=== PATIENT | male | born 1970 | race Caucasian/White ===

== ENCOUNTER 2019-12-24 13:58 | Emergency (ER) | payer BC ==
[2019-12-24] MEDS ORDERED: Sodium Chloride 0.9% 10 ML Syringe FLUSH PRN (14:11)
--- NOTE | 2019-12-24 14:34 | EDM.PDOC ---
ED HPI GENERAL MEDICAL PROBLEM - General Chief Complaint: Chest Pain Stated Complaint: CHEST PAIN Time Seen by Provider: 12/24/19 14:11 Source of Information: Reports: Patient, RN Notes Reviewed History Limitations: Reports: No Limitations - History of Present Illness INITIAL COMMENTS - FREE TEXT/NARRATIVE: Patient is a 49-year-old male who presents to the ED for evaluation of a sudden onset right chest pain. Patient notes that this came on suddenly 2 hours ago, he notes the pain to be sharp stabbing pain in nature, and it seems to worsen when he moves his arm away from his body. He also states it worsens when he takes a deep breath. He notes it is a pretty dull ache at rest, but anytime he takes a deep breath or moves his arm, he states it would bring him to his knees if he was standing up. Patient denies any sort of trauma or lifting anything heavy in the last few days, he further denies any other sick-like symptoms that he has been having. He states there is some associated chest heaviness with this as well. He states that his father at age 47 from a heart attack, and his paternal uncle also had a heart attack in his 70s. Patient denies any other past medical history other than a little bit of elevated cholesterol, and some slight hypertension that he is unmedicated for. Patient denies any diaphoresis, shortness of breath, cough, nausea/vomiting/diarrhea. He did not take anything for the pain at home. Patient states that he really only takes a probiotic for home medications, and denies any other medication use. Location: Reports: Chest (right anterior aspect), Upper Extremity, Right Right Chest Pain Score (Numeric/FACES): 8 - Related Data Allergies Allergy/AdvReac Type Severity Reaction Status Date / Time No Known Allergies Allergy Verified 12/24/19 14:10 Home Meds: Home Meds . [No Known Home Meds] 12/24/19 [History] Past Medical History Cardiovascular History: Reports: High Cholesterol, Hypertension (unmedicated) - Past Surgical History GI Surgical History: Reports: Other (See Below) Other GI Surgeries/Procedures: perianal abcess Social & Family History - Family History Cardiac: Reports: [place] (father at age 47; paternal uncle in 70s) - Tobacco Use Smoking Status *Q: Never Smoker - Caffeine Use Caffeine Use: Reports: Coffee, Soda - Recreational Drug Use Recreational Drug Use: No ED ROS GENERAL - Review of Systems Review Of Systems: Comprehensive ROS is negative, except as noted in HPI. ED EXAM, GENERAL - Physical Exam Exam: See Below Exam Limited By: No Limitations General Appearance: Alert, WD/WN, No Apparent Distress, Anxious Eye Exam: Bilateral Eye: EOMI, Normal Inspection, PERRL Respiratory/Chest: No Respiratory Distress, Lungs Clear, Normal Breath Sounds, No Accessory Muscle Use, Other (Patient's chest is tender on the anterior aspect right side, near the fourth/fifth rib distribution. This does reproduce the pain that he was feeling.) Cardiovascular: Normal Peripheral Pulses, Regular Rate, Rhythm, No Edema, No Murmur Peripheral Pulses: 3+: Radial (L), Radial (R) GI/Abdominal: Normal Bowel Sounds, Soft, Non-Tender, No Distention, No Mass Extremities: Normal Inspection, Normal Capillary Refill Neurological: Alert, Oriented, Normal Cognition, No Motor/Sensory Deficits Psychiatric: Normal Affect, Normal Mood Skin Exam: Warm, Dry, Intact, Normal Color, No Rash EKG INTERPRETATION EKG Date: 12/24/19 Time: 14:03 Rhythm: NSR (sinus bhupinder) Rate (Beats/Min): 55 [place]: Normal P-Wave: Present QRS: Normal ST-T: Normal QT: Normal Comparison: NA - No Prior EKG EKG Interpretation Comments: No obvious ischemia or acute ST changes noted, reviewed by myself and Dr. Connell. Course - Vital Signs Last Recorded V/S: Last Vital Signs Temp 97.0 F 12/24/19 14:08 Pulse 60 12/24/19 14:08 Resp 18 12/24/19 14:08 BP 165/99 H 12/24/19 14:08 Pulse Ox 99 12/24/19 14:08 - Orders/Labs/Meds Orders: Active Orders 24 hr Category Date Time Status EKG Documentation Completion [RC] STAT Care 12/24/19 14:11 Ordered Peripheral IV Care [RC] . DIRECTED Care 12/24/19 14:11 Ordered Sodium Chloride 0.9% [Saline Flush] Med 12/24/19 14:11 Ordered 10 ml FLUSH ASDIRECTED PRN Peripheral IV Insertion Adult [OM.PC] Stat Oth 12/24/19 14:11 Ordered Medication Orders Sodium Chloride (Saline Flush) 10 ml FLUSH ASDIRECTED PRN PRN Reason: Keep Vein Open Last Admin: 12/24/19 14:58 Dose: 10 ml Labs: Laboratory Tests 12/24/19 12/24/19 12/24/19 Range/Units 14:10 14:10 14:10 WBC 4.47 (4.23-9.07) K/mm3 RBC 5.16 (4.63-6.08) M/mm3 Hgb 15.4 (13.7-17.5) gm/dl Hct 46.1 (40.1-51.0) % MCV 89.3 (79.0-92.2) fl MCH 29.8 (25.7-32.2) pg MCHC 33.4 (32.2-35.5) g/dl RDW Std Deviation 42.9 (35.1-43.9) fL Plt Count 224 (163-337) K/mm3 MPV 10.2 (9.4-12.3) fl Neutrophils % (Manual) 58 (40-60) % Band Neutrophils % 1 (0-10) % Lymphocytes % (Manual) 30 (20-40) % Atypical Lymphs % 0 % Monocytes % (Manual) 8 (2-10) % Eosinophils % (Manual) 1 (0.8-7.0) % Basophils % (Manual) 2 H (0.2-1.2) Platelet Estimate Adequate RBC Morph Comment Normal PT 10.9 (9.7-12.0) SECONDS INR 1.00 APTT 28 (22-31) SECONDS Sodium 140 (136-145) mEq/L Potassium 4.5 (3.5-5.1) mEq/L Chloride 103 (98-107) mEq/L Carbon Dioxide 29 (21-32) mEq/L Anion Gap 12.5 (5-15) BUN 14 (7-18) mg/dL Creatinine 1.2 (0.7-1.3) mg/dL Est Cr Clr Drug Dosing 82.63 mL/min Estimated GFR (MDRD) > 60 (>60) mL/min BUN/Creatinine Ratio 11.7 L (14-18) Glucose 108 H (74-106) mg/dL Calcium 9.8 (8.5-10.1) mg/dL Magnesium 2.1 (1.8-2.4) mg/dl Total Bilirubin 0.7 (0.2-1.0) mg/dL AST 26 (15-37) U/L ALT 43 (16-63) U/L Alkaline Phosphatase 64 (46-116) U/L Troponin I < 0.017 (0.00-0.056) ng/mL NT-Pro-B Natriuret Pep (0-125) pg/mL Total Protein 7.7 (6.4-8.2) g/dl Albumin 4.5 (3.4-5.0) g/dl Globulin 3.2 gm/dL Albumin/Globulin Ratio 1.4 (1-2) 12/24/19 Range/Units 14:10 WBC (4.23-9.07) K/mm3 RBC (4.63-6.08) M/mm3 Hgb (13.7-17.5) gm/dl Hct (40.1-51.0) % MCV (79.0-92.2) fl MCH (25.7-32.2) pg MCHC (32.2-35.5) g/dl RDW Std Deviation (35.1-43.9) fL Plt Count (163-337) K/mm3 MPV (9.4-12.3) fl Neutrophils % (Manual) (40-60) % Band Neutrophils % (0-10) % Lymphocytes % (Manual) (20-40) % Atypical Lymphs % % Monocytes % (Manual) (2-10) % Eosinophils % (Manual) (0.8-7.0) % Basophils % (Manual) (0.2-1.2) Platelet Estimate RBC Morph Comment PT (9.7-12.0) SECONDS INR APTT (22-31) SECONDS Sodium (136-145) mEq/L Potassium (3.5-5.1) mEq/L Chloride (98-107) mEq/L Carbon Dioxide (21-32) mEq/L Anion Gap (5-15) BUN (7-18) mg/dL Creatinine (0.7-1.3) mg/dL Est Cr Clr Drug Dosing mL/min Estimated GFR (MDRD) (>60) mL/min BUN/Creatinine Ratio (14-18) Glucose (74-106) mg/dL Calcium (8.5-10.1) mg/dL Magnesium (1.8-2.4) mg/dl Total Bilirubin (0.2-1.0) mg/dL AST (15-37) U/L ALT (16-63) U/L Alkaline Phosphatase (46-116) U/L Troponin I (0.00-0.056) ng/mL NT-Pro-B Natriuret Pep 94 (0-125) pg/mL Total Protein (6.4-8.2) g/dl Albumin (3.4-5.0) g/dl Globulin gm/dL Albumin/Globulin Ratio (1-2) Meds: Medications Generic Name Dose Route Start Last Admin Trade Name Freq PRN Reason Stop Dose Admin Sodium Chloride 10 ml 12/24/19 14:11 12/24/19 14:58 Saline Flush FLUSH 10 ml ASDIRECTED PRN Administration Keep Vein Open - Re-Assessments/Exams Free Text/Narrative Re-Assessment/Exam: 12/24/19 14:38 Patient presents to the ED for evaluation of a sudden onset chest pain. On exam is seems more likely that this is musculoskeletal and/or costochondral in nature. We will get an EKG, chest x-ray, and baseline labs to rule out cardiac etiology. The EKG done at time of triage shows no sign of acute ST changes, and is essentially within normal limits. Reviewed by myself and Dr. Connell. 12/24/19 15:15 Labs have returned, and all are within normal limits. Troponin is negative, patient's not suffering from a heart attack at today's visit again I do believe it is musculoskeletal in nature, he will be directed to take 600 mg ibuprofen every 6 hours for pain relief, and follow-up in clinic this week if it is not much better with conservative management. Departure - Departure Time of Disposition: 15:16 Disposition: Home, Self-Care 01 Condition: Good Clinical Impression: Anterior chest wall pain Instructions: Chest Wall Pain, [id number] Referrals: James Dumont MD [Primary Care Provider] - Forms: ED Department Discharge Additional Instructions: You have been evaluated in the ED for your right-sided chest pain Your x-ray demonstrated no sign of any consolidation or infiltrate like pneumonia, EKG was within normal limits, and all other laboratory evaluation demonstrates no cardiac etiology of the chest pain you are experiencing today. On exam, your pain is most suggestive of a musculoskeletal strain/chest wall pain in nature. Management of this will be conservative measures, you may use 600 mg ibuprofen every 6 hours as needed for further pain relief. Do not exceed 3200 mg in a 24-hour time span. Please use ice as tolerated to the affected area. Please return to ED if your symptoms should change or worsen. Sepsis Event Note (ED) - Evaluation Sepsis Screening Result: No Definite Risk - Focused Exam Vital Signs: Vital Signs Temp Pulse Resp BP Pulse Ox 12/24/19 14:08 97.0 F 60 18 165/99 H 99 - My Orders Last 24 Hours: My Active Orders 12/24/19 14:11 EKG Documentation Completion [RC] STAT Peripheral IV Care [RC] . DIRECTED Sodium Chloride 0.9% [Saline Flush] 10 ml FLUSH ASDIRECTED PRN Peripheral IV Insertion Adult [OM.PC] Stat - Assessment/Plan Last 24 Hours: My Active Orders 12/24/19 14:11 EKG Documentation Completion [RC] STAT Peripheral IV Care [RC] . DIRECTED Sodium Chloride 0.9% [Saline Flush] 10 ml FLUSH ASDIRECTED PRN Peripheral IV Insertion Adult [OM.PC] Stat
--- NOTE | 2019-12-24 14:42 | CR ---
Chest: 2 views of the chest were obtained. Comparison: No prior chest imaging is available. Heart size and mediastinum are normal. Lungs are clear with no acute parenchymal change. Mild scoliosis is noted within the spine. No acute osseous finding is seen. Impression: 1. Nothing acute is seen on 2 view chest x-ray. Diagnostic code #2 This report was dictated in MDT
== END 2019-12-24 15:47 | disposition home or self-care (01) ==
LOC: JD.ED 13:58
DX: R07.89 Other chest pain (principal); I10 Essential (primary) hypertension
CPT/HCPCS: 36415; 71046; 71046-26; 80053; 83735; 83880; 84484; 85007; 85027; 85610; 85730; 93005; 93010; 99283; 99285-25